=== PATIENT | male | born 1955 | race Caucasian/White ===

== ENCOUNTER 2021-01-12 23:14 | Inpatient (IN) | payer MEDICARE, OTHER ==
[~2021-01-12] VITALS: Ht 182.9 cm; Wt 98.4 kg
[~2021-01-12 23:14] MED LIST: ARIP10TA9 PO; BUSPAR PO; LAMO200T2 PO
--- NOTE | 2021-01-12 23:30 | NUR ---
Patient BIB pvt ambulance from [facility]. Patient is on a 5150 for DTS due to SI. No signs of acute neuro deficits, patient is able to ambulate with steady gait. No signs of cardiovascular distress, denies CP, palpitations. Respirations even and unlabored, no cough or sob. Denies any GI or distress. Patient in bed at lowest position, sr upx2. Items removed from room to promote a safe enviroment. No sitters at bedside as security is unable to sit with patient, but will keep in direct line of nursing's sight at all times.
[2021-01-12] MEDS ORDERED: BENA40TA67 PO (23:39)
[2021-01-12] MEDS ORDERED: trazodone PO (23:48)
[2021-01-12] MEDS ORDERED: risperdal PO (23:48)
[2021-01-12] MEDS ORDERED: effexor PO (23:48)
--- NOTE | 2021-01-13 01:20 | NUR ---
report given to nicky garcia in mental health. pt is on a 5150 danger to self. iv to left fa was removed. med list was reviewed with RN. beloning list was reviewed.
[2021-01-13] MEDS ORDERED: MAG HYDROX/AL HYDROX/SIMETH 30 ML LIQUID UDC PO PRN (01:30)
[2021-01-13] MEDS ORDERED: MAGNESIUM HYDROXIDE 30 ML LIQUID UDC PO PRN (01:30)
[2021-01-13] MEDS ORDERED: TEMAZEPAM 7.5 MG CAPSULE PO PRN (01:30)
[2021-01-13 01:45] VITALS: BP 130/93
--- NOTE | 2021-01-13 03:00 | NUR ---
GPS ADMISSION NOTE: AT APPROX 0135 ADMITTED 65 YEARS OLD MALE TO [facility] ON A 5150 HOLD FOR DTS. PER PREVIOUS RECORDS, PATIENT IS HOMELESS. INITIALLY, HE WAS TAKEN TO [facility] AFTER COMPLIANT OF CHEST PAIN. ON TRANSIT TO THE ER, PATIENT TOLD EMS STAFF THAT HE HAD A GUN AND PLANS TO "BLOW HIS BRAINS OUT". HE WAS SUBSEQUENTLY PLACED ON A 5150 HOLD FOR DTS. PER HOLD, PATIENT IS VERBALIZING SUICIDAL IDEATION, "NOW I HAVE TO GO THROUGH WITH IT". PT IS UNABLE TO CFS. PATIENT WAS MEDICALLY CLEARED AT [facility] ER AND [facility]. UPON ADMISSION TO THE UNIT, PATIENT WAS NOTED A/O X 1. HE IS CALM AND SOMEWHAT GUARDED. HE DENIED SI OR ANY PLANS TO COMMIT SUICIDAL. HE STATED, "I SAID LOTS OF THINGS, BUT I DON'T WANT TO ". PT ALSO RECEIVED A SHOWER. FACE TO FACE ASSESSMENT WAS DONE, PATIENT WAS ADVISED OF HIS HOLD. HE WAS GIVEN THE BOOKLET FOR PATIENT'S RIGHT TO MENTAL HEALTH FACILITIES. HE REFUSED TO SIGN HIS ADMISSION PAPER D/T PATIENT WAS TIRED AND WANTED TO GO TO SLEEP. HE WAS INTRODUCED TO THE UNIT RULES AND HIS ROOM. ALL HIS BELONGINGS WERE INVENTORIED AND PLACED IN A SECURED AREA. HE WAS PLACED ON A Q15 MIN CHECKS. PATIENT IS UNDER THE CARE OF DR SHEA.
--- NOTE | 2021-01-13 10:54 | NUR ---
GPS: RECEIVED PT LAYING ON BED. PER RFID SYSTEMS ENGINEER, PT REFUSED HAVING VITAL SIGNS AND ALSO REFUSED LAB WORKS FROM BATCH FREEZER. WENT INSIDE THE ROOM TO TRY TO CHECK VITAL SIGNS AND PT REFUSED IT ALSO. PT WITHDRAWN, QUIET, AND REFUSED TO ATTEND GROUP THERAPY. WILL ENCOURAGE MORE.
--- NOTE | 2021-01-13 12:29 | NUR ---
Firearms Report: Flipping Machine Operator completed and submitted a [employer] firearms report for 5150 grave disability certifications. A copy of report has been placed in patient chart.
--- NOTE | 2021-01-13 13:09 | NUR ---
DAIN Initial Discharge Plan: Patient states he recently left his [facility] facility but unable to provide information. Patient has no family or supportive contacts. Patient will require a SNF placement. DAIN will continue to work with patient and MD to ensure a safe and proper discharge plan.
[2021-01-13] MEDS ORDERED: risperiDONE 0.5 MG TABLET PO SCH (13:15)
[2021-01-13] MEDS: GABAPENTIN 100 MG CAPSULE PO SCH ×3 (13:15→17:26)
[2021-01-13] MEDS: risperiDONE 1 MG TABLET PO SCH ×3 (13:27→17:26)
[2021-01-13] MEDS: BENAZEPRIL HCL 20 MG TABLET PO SCH (13:28)
--- NOTE | 2021-01-13 13:43 | NUR ---
GPS: PT ON BED. REFUSED MEDICATIONS RESPIRDONE, GABAPENTIN AND BENAZEPRIL. PT STATED " I DON'T TAKE THAT CRAP". PT GOT AGITATED. EXPLAINED THE RISK AND BENIFITS OF TAKING THE MEDICATION. V/S CHECKED AND BP 144/77 HR 72, TEMP 97.4F, RR 18 O2 SAT 97% RA.
--- NOTE | 2021-01-13 17:51 | NUR ---
GPS: PT REFUSED GABAPENTIN AND RESPIRDONE. PT STATED THAT HE ONLY TAKES THE RESPIRDONE WITH TRAZODONE AT NIGHT TO HELP HIM WITH SLEEP. EXPLAINED THE RISK AND BENIFITS OF IT. WILL REPORT TO DR SHEA.
[2021-01-13] MEDS: MIRTAZAPINE 15 MG TABLET PO SCH (20:44)
[2021-01-13 22:56] VITALS: BP 135/84
--- NOTE | 2021-01-14 01:53 | NUR ---
Received patient in his bed. When spoken to, the patient was not willing to answer questions freely or look scenario writer in the eye. Patient refused to take any medications and has been refusing lab work as well as VS earlier today. Education and encouragement provided on the topic of compliance , with zero affect. This patient is withdrawn but did deny SI. Safety Stratiges are in place and monitoring closely for any SI or behavior escalation.
[2021-01-14] MEDS: BENAZEPRIL HCL 20 MG TABLET PO SCH (08:43)
[2021-01-14] MEDS: GABAPENTIN 100 MG CAPSULE PO SCH ×3 (08:43→16:32)
[2021-01-14] MEDS: risperiDONE 1 MG TABLET PO SCH ×3 (08:44→16:32)
[2021-01-14 16:00] VITALS: BP 153/83
--- NOTE | 2021-01-14 16:34 | NUR ---
patient refused mrsa swab. charge nurse made aware.
--- NOTE | 2021-01-14 17:01 | NUR ---
GPS: PATIENT REFUSED AM AND NOON PO MEDS,V/S AND LAB. TOOK 5 PM PO MEDS.REMAIN DEPRESSED.ENCOURAGED TO VENTILATE FEELINGS. CONTINUE PLAN OF CARE.
[2021-01-14 20:04] VITALS: BP 137/83
[2021-01-14] MEDS: LORAZEPAM 0.5 MG TABLET PO PRN (20:33)
[2021-01-14] MEDS: MIRTAZAPINE 15 MG TABLET PO SCH (20:33)
[2021-01-15 07:30] VITALS: BP 135/69
[2021-01-15] MEDS: BENAZEPRIL HCL 20 MG TABLET PO SCH (09:43)
[2021-01-15] MEDS: risperiDONE 1 MG TABLET PO SCH ×3 (09:43→17:25)
[2021-01-15] MEDS: GABAPENTIN 100 MG CAPSULE PO SCH ×3 (09:43→17:25)
--- NOTE | 2021-01-15 12:55 | NUR ---
GPS: 14 DAY HOLD ORDER MADE FOR PT DANGER TO HERSELF AND GD. FAXED TO COURT. PT GIVEN A COPY AND ACKNOWLEDGE IT.
--- NOTE | 2021-01-15 14:48 | NUR ---
Gps/Railroad Police Officer- Tend to be isolative , encouraged to attend his group therapy, had been compliant with his am routine meds. discouraged from closing his door.
[2021-01-15 16:00] VITALS: BP 146/96
[2021-01-15 20:11] VITALS: BP 146/66
[2021-01-15] MEDS: ACETAMINOPHEN 325 MG TABLET PO PRN (20:32)
[2021-01-15] MEDS: MIRTAZAPINE 15 MG TABLET PO SCH (20:35)
--- NOTE | 2021-01-15 22:00 | NUR ---
Received to care, lying in bed, isolative, with body under covers. Pleasant when approached. Compliant with medications. Bedtime snack and fluids were given. PRN Tylenol was given for lower back pain, with good results. As of Now, he remains asleep. No distress noted.
[2021-01-16] MEDS: GABAPENTIN 100 MG CAPSULE PO SCH ×3 (08:44→16:04)
[2021-01-16] MEDS: risperiDONE 1 MG TABLET PO SCH ×3 (08:44→16:04)
[2021-01-16] MEDS: BENAZEPRIL HCL 20 MG TABLET PO SCH (08:54)
--- NOTE | 2021-01-16 14:32 | NUR ---
Gps/Blow Mold Machine Operator- Had been compliant with routine am meds, encouraged participating in his group therapy, flat, guarded., stays in bed most of the time.
[2021-01-16 16:55] VITALS: BP 125/73
--- NOTE | 2021-01-16 18:10 | NUR ---
Gps/Union Carpenter- Asking for more food, claimed still hungry requesting sandwich of any kind, was ordered. Adequate intake .
[2021-01-16 19:58] VITALS: BP 128/70
[2021-01-16] MEDS: ACETAMINOPHEN 325 MG TABLET PO PRN (20:35)
[2021-01-16] MEDS: MIRTAZAPINE 15 MG TABLET PO SCH (20:36)
--- NOTE | 2021-01-17 05:02 | NUR ---
Received to care lying in bed, pleasant upon approach. He stated that he was suicidal, but denied having a plan. He agreed to contract for safety. He remains isolative, taking all his meals in his room. He complained that his roommate was taking his food off his tray, so he was moved to a room closer to the nurses station. As Of Now, he continues to sleep. Monitored closely for safety. no distress noted.
[2021-01-17 07:30] VITALS: BP 113/77
[2021-01-17] MEDS: GABAPENTIN 100 MG CAPSULE PO SCH ×4 (09:36→16:41)
[2021-01-17] MEDS: BENAZEPRIL HCL 20 MG TABLET PO SCH (09:37)
[2021-01-17] MEDS: risperiDONE 1 MG TABLET PO SCH ×4 (09:37→16:42)
[2021-01-17 16:00] VITALS: BP 92/63
--- NOTE | 2021-01-17 16:42 | NUR ---
Gps/Ecological Economist- Refusing pm meds, b/p 88/58 HR 105 02 sat 96% denies any dizziness, fluids offered, encouraged , lower ext. elevated on a foot rest
--- NOTE | 2021-01-17 17:00 | NUR ---
Gps/Drilling Fluids Specialist 88/58 HR 70 , slightly lightheaded , kept up by The Nurses station, with lower ext, elevated , B/P rechecked 104/70
--- NOTE | 2021-01-17 18:00 | NUR ---
Gps/Junior Mechanical Engineer-104/70 HR 85
[2021-01-17] MEDS: LORAZEPAM 0.5 MG TABLET PO PRN (18:17)
[2021-01-17 20:00] VITALS: BP 96/51
--- NOTE | 2021-01-17 20:30 | NUR ---
Received patient in his room in bed. he is noted A/O x 2 to 3. he appears depressed. he continue isolative and withdrawn to his room. He stated, "I am feeling sad because of my daughter. She doesn't want to talk to me". he also stated that "sometimes i feel i don't want to live anymore but i don't want to harm myself". Patient was reassured for his safety, he was able to verbally CFS. he stated, "I will ask for help, if i feel i want to kill myself". safety and fall precaution are in place. will continue with Q15 min checks. Patient was given PO fluids and snacks. V/S stable. will continue to monitor closely.
[2021-01-17] MEDS: MIRTAZAPINE 15 MG TABLET PO SCH (20:50)
[2021-01-18 07:48] VITALS: BP 135/75
[2021-01-18] MEDS: GABAPENTIN 100 MG CAPSULE PO SCH ×3 (08:40→16:15)
[2021-01-18] MEDS: risperiDONE 1 MG TABLET PO SCH ×3 (08:40→16:15)
[2021-01-18] MEDS: BENAZEPRIL HCL 20 MG TABLET PO SCH (08:41)
--- NOTE | 2021-01-18 13:05 | NUR ---
Gps/Head Char Filter Tank Tender-Isolative and withdrawn noted always in bed, encouraged to attend his am group therapy, meds. compliant, , accepted to feeling depressed but denied any S.I., encouraged verbalizations of his feelings and needs.
[2021-01-18 15:56] VITALS: BP 141/81
[2021-01-18] MEDS: MIRTAZAPINE 15 MG TABLET PO SCH (20:03)
[2021-01-18] MEDS: ACETAMINOPHEN 325 MG TABLET PO PRN (20:03)
--- NOTE | 2021-01-18 20:30 | NUR ---
RECEIVED PATIENT IN HIS ROOM IN BED. HE IS NOTED AWAKE A/O X 2 TO 3. HE APPEARS DEPRESSED. HE CONTINUE HAVING PASSIVE SI WITHOUT A PLAN TO COMMIT SUICIDAL. PATIENT STATED THAT HE IS SAD BECAUSE OF HIS DAUGHTER. HE WISHES HE COULD TALK TO HER DAUGHTER. PATIENT WAS REASSURED FOR HIS SAFETY. HE WAS ABLE TO VERBALLY CFS. V/S STABLE. PT WAS GIVEN PO FLUIDS AND SNACKS. WILL CONTINUE TO MONITOR.
[2021-01-18 21:59] VITALS: BP 136/66
[2021-01-19 07:39] VITALS: BP 102/61
[2021-01-19] MEDS: BENAZEPRIL HCL 20 MG TABLET PO SCH (09:00)
[2021-01-19] MEDS: risperiDONE 1 MG TABLET PO SCH ×2 (09:26→13:00)
[2021-01-19] MEDS: GABAPENTIN 100 MG CAPSULE PO SCH ×3 (09:26→16:01)
--- NOTE | 2021-01-19 09:38 | NUR ---
SW SNF Referral SW faxed patient's referral packet to [facility] [address] [place], [place] [address] [address] ( ) to addmissions for review.
--- NOTE | 2021-01-19 13:00 | NUR ---
PROBABLE CAUSE HEARING: Patient's probable cause hearing was today for the 5250 hold. 5250 hold was upheld for GD. Patient does not wish to request a writ.
--- NOTE | 2021-01-19 13:15 | NUR ---
SW Discharge Planning/SNF Contact SW spoke with pt who informed he was previously residing at [address] [address] ([phone]). DAIN spoke with Francisco, woods laborer of [facility], who states pt is welcome back to the board and care when he is ready for discharge. Pt reports he received mental health care at [facility] and will continue to receive care there upon discharge. Dr. Noyola has been made aware.
--- NOTE | 2021-01-19 13:20 | NUR ---
SW SNF Contact SW spoke with [place] ([phone]) conference center coordinator at [facility] and informed pt no longer needs placement there.
--- NOTE | 2021-01-19 14:31 | NUR ---
Patient is alert and oriented. He is guarded, withdrawn, isolative, and provides minimal disclosure during assessment and conversation. Patient denies suicidal and homicidal ideation. He states that his mood is somewhat depressed but he denies any suicidal ideation. Patient denies hallucinations. Patient was medication compliant in the AM, but refused scheduled 1300 PO medication. Patient states "I don't want them. They don't make me feel good." Patient provided with education about importance of taking medication as prescribed but continues to refuse. Patient is able to ambulate independently, able to perform self care and ADl's independently. Patient encouraged to participate in unit groups and therapeutic milieu. Patient provided with education about impulse control and communicating needs appropriately to staff.
[2021-01-19] MEDS: LORAZEPAM 0.5 MG TABLET PO PRN (15:39)
[2021-01-19 15:41] VITALS: BP 127/79
[2021-01-19] MEDS: risperiDONE 2 MG TABLET PO SCH (16:01)
[2021-01-19] MEDS: ACETAMINOPHEN 325 MG TABLET PO PRN (18:50)
[2021-01-19] MEDS: MIRTAZAPINE 15 MG TABLET PO SCH (20:09)
[2021-01-19 20:14] VITALS: BP 124/66
--- NOTE | 2021-01-19 20:30 | NUR ---
received patient in his room in bed. he is noted awake A/O x 2 to 3. he appears depressed, sad face, flat affect, low mood, isolative and withdrawn to his room. Upon interview, patient stated, "I am feelings sad but i don't want to harm myself" patient is able to verbally CFS. he is reassured for his safety. safety and fall precautions are in place. V/S stable. patient was given PO fluids and snacks. will continue to monitor closely.
[2021-01-20] MEDS: risperiDONE 1 MG TABLET PO SCH (09:10)
[2021-01-20] MEDS: GABAPENTIN 100 MG CAPSULE PO SCH ×3 (09:10→17:46)
[2021-01-20] MEDS: BENAZEPRIL HCL 20 MG TABLET PO SCH (09:13)
[2021-01-20] MEDS: LORAZEPAM 0.5 MG TABLET PO PRN ×2 (13:23→21:00)
[2021-01-20] MEDS: risperiDONE 2 MG TABLET PO SCH ×2 (13:23→17:47)
--- NOTE | 2021-01-20 14:39 | NUR ---
GPS: PT RECEIVED ON BED, ALERT AND ORIENTED. PT HAVE EPISODE OF REFUSING THE MEDICATION BUT THIS MORNING, WAS ABLE TO GIVE IT AFTER TELLING THE PT THE OIL ANALYST IS COMING BACK AFTER AN HOUR. PT REQUESTED FOR ATIVAN AROUND 1300, TOLERATED WELL. PT FEELS ISOLATED, STAYS IN HIS BED AND REFUSED ATTENDING GROUP THERAPY AND ACTIVITIES. WILL MONITOR.
[2021-01-20 21:30] VITALS: BP 138/58
[2021-01-21] MEDS: GABAPENTIN 100 MG CAPSULE PO SCH ×3 (09:00→18:30)
[2021-01-21] MEDS: BENAZEPRIL HCL 20 MG TABLET PO SCH (09:22)
[2021-01-21] MEDS: risperiDONE 2 MG TABLET PO SCH ×3 (09:23→18:30)
--- NOTE | 2021-01-21 14:10 | NUR ---
GPS: PT REFUSED TAKING REPIRDONE AND GABAPENTIN. PT STATED "IT IS ALL CRAP AND DONT WANNA TAKE IT". EXPLAINED RISK AND BENIFITS. Addendum: 01/21/21 at 1545 by MARIA C AGRAWAL RN GPS: PT HAVE A NEW ORDER OF TRAMADOL FOR LOWER BACK PAIN, PT REQUESTED TO TAKE THE RESPIRDAL AND GABAPENTIN TOGETHER WITH THE TRAMADOL. PT TOLERATED WELL.
[2021-01-21] MEDS: TRAMADOL HCL 50 MG TABLET PO PRN (15:35)
[2021-01-21 16:33] VITALS: BP 106/60
[2021-01-21 20:19] VITALS: BP 120/65
[2021-01-22 07:30] VITALS: BP 106/62
[2021-01-22] MEDS: GABAPENTIN 100 MG CAPSULE PO SCH ×3 (08:24→17:44)
[2021-01-22] MEDS: BENAZEPRIL HCL 20 MG TABLET PO SCH (08:25)
[2021-01-22] MEDS: risperiDONE 2 MG TABLET PO SCH ×3 (08:26→17:44)
--- NOTE | 2021-01-22 14:47 | NUR ---
GPS: PT COOPERATIVE WITH CARE AND COMPLIANT WITH MEDICATIONS. PT LIKES TO STAY IN THE ROOM. GUARDED FEELING. DENIES ANY PAIN OR DISCOMFORT.
[2021-01-22 16:00] VITALS: BP 112/72
[2021-01-22 20:00] VITALS: BP 100/55
[2021-01-22] MEDS: TRAMADOL HCL 50 MG TABLET PO PRN (20:59)
--- NOTE | 2021-01-23 06:46 | NUR ---
GPS: Pt.slept 8 hrs.last night. Less anxious and depressed but denies wanting to hurt self. Re-assured prn. Safe environment provided. Will continue to monitor.
[2021-01-23] MEDS: BENAZEPRIL HCL 20 MG TABLET PO SCH (09:00)
[2021-01-23] MEDS: GABAPENTIN 100 MG CAPSULE PO SCH (09:57)
[2021-01-23] MEDS: risperiDONE 2 MG TABLET PO SCH ×3 (09:57→17:55)
[2021-01-23] MEDS: TRAMADOL HCL 50 MG TABLET PO PRN ×2 (10:20→17:57)
[2021-01-23 16:51] VITALS: BP 127/78
[2021-01-23] MEDS: GABAPENTIN 300 MG CAPSULE PO SCH (17:54)
[2021-01-23 20:37] VITALS: BP 128/74
[2021-01-24 08:16] VITALS: BP 132/65
[2021-01-24] MEDS: BENAZEPRIL HCL 20 MG TABLET PO SCH (09:22)
[2021-01-24] MEDS: GABAPENTIN 300 MG CAPSULE PO SCH ×3 (09:22→17:00)
[2021-01-24] MEDS: risperiDONE 2 MG TABLET PO SCH ×3 (09:22→17:00)
[2021-01-24 15:49] VITALS: BP 133/78
[2021-01-24] MEDS: LORAZEPAM 0.5 MG TABLET PO PRN (18:40)
--- NOTE | 2021-01-24 18:50 | NUR ---
GPS: Nursing Notes: C/O Needing O2: Patient asking for oxygen, stated "I have asthma.. I need oxygen..", pulse ox check = 93% at room air, there is no history of asthma on his H&P, stated "I used to get Albuterol..", Epic called at this time, waiting for call back, continue to monitor for safety, to endorse to incoming nurse, continue with treatment plan.
[2021-01-24 20:00] VITALS: BP 150/76
[2021-01-24] MEDS ORDERED: ALBUTEROL SULFATE 1.25 MG/3 ML NEBU NEB PRN (20:00)
--- NOTE | 2021-01-24 20:00 | NUR ---
RECEIVED PATIENT IN HIS ROOM IN BED. HE IS NOTED AWAKE A/O X 2. HE CONTINUE ISOLATIVE TO HIS ROOM, BUT HE WAS NOTED PACING THE HALLWAY FEW TIMES. PATIENT STATED THAT HE HAS A HISTORY OF ASTHMA AND WOULD LIKE NEBULIZER TXs. PT NOTED IN NO DISTRESS, V/S STABLE. HE DENIED SI AND HE IS ABLE TO CFS. HE IS REASSRUED FOR HIS SAFETY, SAFETY AND FALL PRECAUTION IN PLACE. AWAITING FOR DR PENALOZA FOR ORDERS.
--- NOTE | 2021-01-24 20:30 | NUR ---
DR PENALOZA IN THE UNIT. NEW ORDER OBTAINED TO DO CHEST X RAY AND ALBUTEROL NEBULIZER TXs. ORDERS NOTED AND CARRIED OUT. WILL CONTINUE TO MONITOR.
--- NOTE | 2021-01-24 22:45 | NUR ---
PATIENT IS OUT OF THE UNIT FOR CHEST XRAY. HE IS ACCOMPANIED BY 2 STAFF. WILL CONTINUE TO MONITOR.
--- NOTE | 2021-01-24 23:00 | NUR ---
PATIENT IS BACK IN THE UNIT. CHEXT X RAY DONE, WILL CHECKS FOR RESULTS. PT NOTED IN NO DISTRESS.
[2021-01-25] MEDS: BENAZEPRIL HCL 20 MG TABLET PO SCH (09:00)
[2021-01-25] MEDS: GABAPENTIN 300 MG CAPSULE PO SCH ×3 (09:03→17:00)
[2021-01-25] MEDS: risperiDONE 2 MG TABLET PO SCH ×4 (09:04→20:32)
--- NOTE | 2021-01-25 15:05 | NUR ---
GPS: Nursing Notes: Mood Disturbance: Depression: Patient is awake and responding to his name, compliant with his medications today, isolative and withdrawn in his room, no interactions with peers, depressed mood and withdrawn affect, refusing to participate in therapeutic groups, eating 100% of his meals, low energy level, unkempt appearance, unable to formulate a viable plan for self care, continue to monitor for safety, continue with treatment plan.
[2021-01-25 20:14] VITALS: BP 116/75
[2021-01-25] MEDS: LORAZEPAM 0.5 MG TABLET PO PRN (21:28)
[2021-01-25] MEDS: TRAMADOL HCL 50 MG TABLET PO PRN (21:29)
[2021-01-26] MEDS: risperiDONE 2 MG TABLET PO SCH ×3 (08:44→17:26)
[2021-01-26] MEDS: BENAZEPRIL HCL 20 MG TABLET PO SCH (08:44)
[2021-01-26] MEDS: GABAPENTIN 300 MG CAPSULE PO SCH ×3 (08:44→17:26)
--- NOTE | 2021-01-26 12:00 | NUR ---
DAIN Note DAIN called [employer] ([phone]) and spoke with Officer Ermias to report pt's alleged gun possession. DAIN provided information given by pt regarding the gun, such as losing the cabrera to access the gun. Officer Ermias stated she would take info as an FYI.
--- NOTE | 2021-01-26 12:02 | NUR ---
DAIN Board and Care Contact SW called and left voice mail at [facility] ([phone]) requesting call back to discuss discharge for today.
[2021-01-26] MEDS: LORAZEPAM 0.5 MG TABLET PO PRN (12:50)
[2021-01-26 16:02] VITALS: BP 127/85
[2021-01-26 20:06] VITALS: BP 130/76
[2021-01-27] MEDS: GABAPENTIN 300 MG CAPSULE PO SCH ×3 (10:42→18:02)
[2021-01-27] MEDS: risperiDONE 2 MG TABLET PO SCH ×3 (10:42→18:02)
[2021-01-27 16:11] VITALS: BP 120/67
--- NOTE | 2021-01-27 18:39 | NUR ---
GPS: PT STAYED ON BED MOST O F THE TIME, COOPERATIVE WITH CARE AND COMPLIANT WITH MEDICATIONS. PT SEEN WALKING AROUND THE HALLWAY. QUIET AND PLEASANT. PT SOMETIMES REFUSE MEDICATION BUT AFTER REINFORCING IT, PT ABLE TO TYAKE MEDICATIONS. DENIES ANY PAIN AND DISCOMFORT.
[2021-01-27 21:04] VITALS: BP 125/89
[2021-01-27] MEDS: TRAMADOL HCL 50 MG TABLET PO PRN (21:26)
[2021-01-27] MEDS: HYDROCODONE/APAP 5-325MG TABLET PO PRN (23:58)
--- NOTE | 2021-01-28 04:56 | NUR ---
Remains isolative, mostly in bed. Denies wanting to hurt self. PRN Restoril given for sleep at 0107. Sleeping well. No distress noted.
[2021-01-28 07:30] VITALS: BP 92/56
[2021-01-28] MEDS: GABAPENTIN 300 MG CAPSULE PO SCH ×3 (08:44→16:32)
[2021-01-28] MEDS: risperiDONE 2 MG TABLET PO SCH ×3 (08:44→16:32)
[2021-01-28] MEDS: HYDROCODONE/APAP 5-325MG TABLET PO PRN (11:10)
--- NOTE | 2021-01-28 12:13 | NUR ---
GPS: PT REQUESTED FOR NORCO FOR CHRONIC LOWER BACK PAIN 11/07. GIVEN AND TOLERATED WELL.
--- NOTE | 2021-01-28 14:18 | NUR ---
GPS: PT WILL BE DISCHARGE TO [facility] ([facility] AT [address] [place] [phone] ([phone]) VIA TAXI. ALL THINGS, CLOTHES SIGNED OFF BY PATIENT. PT COOPERATIVE WITH CARE AND COMPLIANT WITH MEDICATIONS. DENIES PAIN OR DISCOMFORT AT THIS TIME. PT AGREED THAT HE WILL BE FOLLOWING UP WITH A CERTAIN DR. Staley (PSYCHIATRIST) OF [facility] AND DR BLAZE GAMING (PAIN SPECIALIST) AT [facility] SOON POSSIBLE. NO SUICIDAL IDEATION NOTED.
[2021-01-28 16:00] VITALS: BP 121/64
--- NOTE | 2021-01-28 16:12 | NUR ---
DAIN Discharge Note Patient will be discharged to [facility] board and care at [address] [place] [address] ([phone]) via taxi voucher today. DAIN spoke with Jose, owners at the facility, who state they are ready to accept the patient today. Patient is aware and agreeable with discharge plans. Patient is alert and oriented x4. Patient denies any suicidal or homicidal ideation. Patient will follow-up with [facility] ([phone]). Pt presents with calm mood and congruent affect.
[2021-01-28] MEDS: TRAMADOL HCL 50 MG TABLET PO PRN (16:32)
--- NOTE | 2021-01-28 17:52 | NUR ---
GPS: PT WAS DISCHARGED TODAY VIA TAXI. PT ALERT AND ORIENTED. ALL BELONGINGS GIVEN AND SIGNED OFF. PT GIVEN GABAPENTIN, RESPIRDAL AND ULTRAM PT REQUESTED FOR PAIN MEDICATION FOR HIS CHRONIC LOWER BACK PAIN. PT TOLERATED WELL. ALL PERTINENT PAPERS SIGNED AND HANDED OUT PRESCRIPTIONS.
== END 2021-01-28 19:03 | DRG 885 ==
LOC: ER 23:26 → GPS 01-13 01:12
PROVIDERS: ADMIT Psychiatry & Neurology Psychosomatic Medicine; ATTEND Internal Medicine
DX: F31.64 Bipolar disorder, current episode mixed, severe, with psychotic features (principal); R45.851 Suicidal ideations; F31.9 Bipolar disorder, unspecified; Z59.00 Homelessness unspecified; I10 Essential (primary) hypertension; E66.9 Obesity, unspecified; Z68.29 Body mass index [BMI] 29.0-29.9, adult; F15.10 Other stimulant abuse, uncomplicated; F14.10 Cocaine abuse, uncomplicated; Z20.822 Contact with and (suspected) exposure to COVID-19; Z79.899 Other long term (current) drug therapy; Z91.14 Patient's other noncompliance with medication regimen
CPT/HCPCS: 71046; 94664; 97161; A4663